=== PATIENT | male | born 1950 | race Caucasian/White ===

== ENCOUNTER 2017-09-22 11:12 | Inpatient (IN) | payer MEDICARE, OTHER ==
[2017-09-22] MEDS ORDERED: ACETAMINOPHEN 325 MG TAB PO ×2 (12:00→23:00)
[2017-09-22] MEDS ORDERED: ONDANSETRON 4 MG INJ IV (12:00)
[2017-09-22 12:29] LABS: ADD MAN DIFF? NO
[2017-09-22 12:32] LABS: WHITE BLOOD COUNT 7.4 10^3/ul (4.8-10.8)
[2017-09-22 12:32] LABS: BASOPHILS % 0.4 % (0.0-2.0); EOSINOPHILS # 0.5 10^3/ul (0.0-0.5); EOSINOPHILS % 6.8 % (0.0-7.0); HEMATOCRIT 27.4 % (42.0-52.0); HEMOGLOBIN 8.6 g/dl (14.0-18.0); LYMPHOCYTES # 0.7 10^3/ul (0.8-2.9); LYMPHOCYTES % 9.4 % (15.0-51.0); MEAN CORPUSCULAR HEMOGLOBIN 29.6 pg (29.0-33.0); MEAN CORPUSCULAR HGB CONC 31.4 g/dl (32.0-37.0); MEAN CORPUSCULAR VOLUME 94.2 fl (82.0-101.0); MONOCYTE # 0.4 10^3/ul (0.3-0.9); MONOCYTES % 5.2 % (0.0-11.0); NEUTROPHIL # 5.7 10^3/ul (1.6-7.5); NEUTROPHILS % 77.9 % (39.0-77.0); PLATELET COUNT 182 10^3/UL (140-415); RED BLOOD COUNT 2.91 10^6/ul (4.70-6.10); RED CELL DISTRIBUTION WIDTH 15.1 % (11.5-14.5)
[2017-09-22 12:51] LABS: ALANINE AMINOTRANSFERASE 29 IU/L (13-69); ALBUMIN 3.8 g/dl (3.3-4.9); ALBUMIN/GLOBULIN RATIO 1.08; ALKALINE PHOSPHATASE 61 IU/L (42-121); ANION GAP 14 (8-16); ASPARTATE AMINO TRANSFERASE 20 IU/L (15-46); BILIRUBIN,INDIRECT 0.1 mg/dl (0-1.1); BILIRUBIN,TOTAL 0.1 mg/dl (0.2-1.3); BLOOD UREA NITROGEN 30 mg/dl (7-20); CALCIUM 8.7 mg/dl (8.4-10.2); CARBON DIOXIDE 26 mmol/L (21-31); CHLORIDE 108 mmol/L (97-110); CREATININE 1.75 mg/dl (0.61-1.24); GLUCOSE 93 mg/dl (70-220); SODIUM 143 mmol/L (135-144); TOTAL PROTEIN 7.3 g/dl (6.1-8.1)
[2017-09-22 12:59] LABS: PROTIME 13.3 Sec (11.9-14.9)
[2017-09-22 13:00] LABS: PARTIAL THROMBOPLASTIN TIME 31.3 Sec (25.0-35.0)
[2017-09-22 13:01] LABS: LACTIC ACID 1.4 mmol/L (0.5-2.0)
[2017-09-22 13:06] LABS: TROPONIN-I < 0.012 ng/ml (0.00-0.12)
[2017-09-22] MEDS: PIPER-TAZO 3.375 GM IV (PMX) 100 ML IVPB (13:16)
[2017-09-22] MEDS: VANCOMYCIN 1 GM (PMX) 250 ML IVPB (14:00)
[2017-09-22] MEDS: LIDOCAINE 1%/EPI 30 ML INJ INJ ×2 (14:57→17:19)
[2017-09-22 16:34] LABS: LACTIC ACID 1.4 mmol/L (0.5-2.0)
[2017-09-22] MEDS: CEFTRIAXONE 1 GM/50 ML (PMX) 50 ML IVPB (16:38)
[2017-09-22] MEDS: PANTOPRAZOLE 40 MG INJ IV (18:45)
[2017-09-22] MEDS ORDERED: PANTOPRAZOLE 40 MG INJ IV (21:00)
[2017-09-22] MEDS ORDERED: BISACODYL 10 MG SUPP PR ×2 (23:00)
[2017-09-22] MEDS ORDERED: GLUCOSE GEL 15 GRAM TUBE PO ×2 (23:30)
[2017-09-22] MEDS ORDERED: RANITIDINE 150 MG TAB PO (23:30)
[2017-09-22] MEDS ORDERED: DEXTROSE 50% 50 ML SYRINGE IV ×2 (23:30)
[2017-09-22] MEDS ORDERED: GLUCAGON 1 MG INJ IM (23:30)
[2017-09-22] MEDS ORDERED: GLUCOSE GEL 15 GRAM TUBE BUCCAL (23:30)
[2017-09-23] MEDS: ACCU-CHEK XX (02:00)
[2017-09-23] MEDS ORDERED: PANTOPRAZOLE (EC) 40 MG TAB PO (06:00)
[2017-09-23] MEDS: LANSOPRAZOLE 30 MG CAP PO ×2 (06:15→17:12)
[2017-09-23] MEDS: INSULIN ASPART [NOVOLOG] 3 ML PEN SC ×4 (08:00→20:52)
[2017-09-23] MEDS: INFLUENZA VIRUS VACCINE 0.5 ML (DISPENSING) IM* (09:00)
[2017-09-23] MEDS ORDERED: CLOPIDOGREL 75 MG TAB PO (09:00)
[2017-09-23] MEDS ORDERED: RANITIDINE 150 MG TAB PO (09:00)
[2017-09-23] MEDS: ESCITALOPRAM 10 MG TAB PO (09:11)
[2017-09-23] MEDS: CHOLECALCIFEROL 1,000 UNIT TAB PO (09:11)
[2017-09-23] MEDS: LOSARTAN 25 MG TAB PO (09:12)
[2017-09-23] MEDS: DOCUSATE SODIUM 100 MG CAP PO ×2 (09:12→20:51)
[2017-09-23] MEDS: LEVETIRACETAM 750 MG TAB PO ×2 (09:12→20:51)
[2017-09-23] MEDS: MULTIVIT/CA CARB/B CMPLX/FA TAB PO (09:13)
[2017-09-23] MEDS: MEMANTINE 10 MG TAB PO (09:13)
[2017-09-23] MEDS: CLOPIDOGREL 75 MG TAB PO (09:13)
[2017-09-23] MEDS: ARTIFICIAL TEARS 15 ML OPH BOTH EYES ×4 (09:14→20:50)
[2017-09-23] MEDS: CEFTRIAXONE 1 GM/50 ML (PMX) 50 ML IVPB (09:14)
[2017-09-23] MEDS: OXYBUTYNIN (XL) 5 MG TAB PO (09:14)
[2017-09-23] MEDS: FENOFIBRATE 145 MG TAB PO (09:31)
[2017-09-23] MEDS: ASPIRIN (EC) 81 MG TAB PO (10:31)
[2017-09-23] MEDS: SODIUM HYPOCHLORITE 0.125% 473 ML BTL IRR (10:51)
[2017-09-23] MEDS: TAMSULOSIN (SR) 0.4 MG CAP PO (20:51)
[2017-09-23] MEDS: ATORVASTATIN 20 MG TAB PO (20:51)
[2017-09-24] MEDS: ACCU-CHEK XX (02:00)
[2017-09-24] MEDS: LANSOPRAZOLE 30 MG CAP PO ×2 (06:06→17:13)
[2017-09-24] MEDS: INSULIN ASPART [NOVOLOG] 3 ML PEN SC ×4 (08:00→20:14)
[2017-09-24] MEDS: CEFTRIAXONE 1 GM/50 ML (PMX) 50 ML IVPB (08:33)
[2017-09-24] MEDS: OXYBUTYNIN (XL) 5 MG TAB PO (08:40)
[2017-09-24] MEDS: MULTIVIT/CA CARB/B CMPLX/FA TAB PO (08:40)
[2017-09-24] MEDS: ARTIFICIAL TEARS 15 ML OPH BOTH EYES ×4 (08:40→20:14)
[2017-09-24] MEDS: CLOPIDOGREL 75 MG TAB PO (08:40)
[2017-09-24] MEDS: ESCITALOPRAM 10 MG TAB PO (08:41)
[2017-09-24] MEDS: ASPIRIN (EC) 81 MG TAB PO (08:41)
[2017-09-24] MEDS: LEVETIRACETAM 750 MG TAB PO ×2 (08:42→20:14)
[2017-09-24] MEDS: DOCUSATE SODIUM 100 MG CAP PO ×2 (08:42→20:14)
[2017-09-24] MEDS: FENOFIBRATE 145 MG TAB PO (08:42)
[2017-09-24] MEDS: CHOLECALCIFEROL 1,000 UNIT TAB PO (08:42)
[2017-09-24] MEDS: MEMANTINE 10 MG TAB PO (08:42)
[2017-09-24] MEDS: LOSARTAN 25 MG TAB PO (08:42)
[2017-09-24] MEDS: SODIUM HYPOCHLORITE 0.125% 473 ML BTL IRR (08:43)
[2017-09-24] MEDS: CLINDAMYCIN 900 MG/D5W (PMX) 50 ML IVPB ×2 (16:02→21:30)
[2017-09-24] MEDS: ATORVASTATIN 20 MG TAB PO (20:14)
[2017-09-24] MEDS: TAMSULOSIN (SR) 0.4 MG CAP PO (20:15)
[2017-09-24] MEDS: DIPHENHYDRAMINE 1%/ZINC 28.3 GM CR TOP (21:30)
[2017-09-25] MEDS: ACCU-CHEK XX (01:41)
[2017-09-25 05:03] LABS: ADD MAN DIFF? NO
[2017-09-25 05:10] LABS: BASOPHILS % 0.5 % (0.0-2.0); EOSINOPHILS # 0.6 10^3/ul (0.0-0.5); EOSINOPHILS % 16.3 % (0.0-7.0); HEMATOCRIT 23.3 % (42.0-52.0); HEMOGLOBIN 7.4 g/dl (14.0-18.0); LYMPHOCYTES # 0.6 10^3/ul (0.8-2.9); LYMPHOCYTES % 16.5 % (15.0-51.0); MEAN CORPUSCULAR HEMOGLOBIN 29.4 pg (29.0-33.0); MEAN CORPUSCULAR HGB CONC 31.8 g/dl (32.0-37.0); MEAN CORPUSCULAR VOLUME 92.5 fl (82.0-101.0); MEAN PLATELET VOLUME 10.2 fl (7.4-10.4); MONOCYTE # 0.3 10^3/ul (0.3-0.9); MONOCYTES % 6.7 % (0.0-11.0); NEUTROPHIL # 2.2 10^3/ul (1.6-7.5); NEUTROPHILS % 59.5 % (39.0-77.0); PLATELET COUNT 190 10^3/UL (140-415); RED BLOOD COUNT 2.52 10^6/ul (4.70-6.10); RED CELL DISTRIBUTION WIDTH 14.7 % (11.5-14.5)
[2017-09-25 05:10] LABS: WHITE BLOOD COUNT 3.8 10^3/ul (4.8-10.8)
[2017-09-25] MEDS: CLINDAMYCIN 900 MG/D5W (PMX) 50 ML IVPB ×3 (05:31→21:03)
[2017-09-25] MEDS: LANSOPRAZOLE 30 MG CAP PO ×2 (05:31→17:48)
[2017-09-25 05:37] LABS: ANION GAP 14 (8-16); BLOOD UREA NITROGEN 46 mg/dl (7-20); CALCIUM 8.9 mg/dl (8.4-10.2); CARBON DIOXIDE 24 mmol/L (21-31); CHLORIDE 109 mmol/L (97-110); CREATININE 1.95 mg/dl (0.61-1.24); GLUCOSE 107 mg/dl (70-220); POTASSIUM 4.7 mmol/L (3.5-5.1); SODIUM 142 mmol/L (135-144)
[2017-09-25] MEDS: SODIUM HYPOCHLORITE 0.125% 473 ML BTL IRR ×2 (06:41→09:34)
[2017-09-25] MEDS: INSULIN ASPART [NOVOLOG] 3 ML PEN SC ×4 (07:53→21:00)
[2017-09-25] MEDS: ARTIFICIAL TEARS 15 ML OPH BOTH EYES ×5 (09:00→20:37)
[2017-09-25] MEDS: DOXYCYCLINE 100 MG TAB PO ×2 (09:33→22:47)
[2017-09-25] MEDS: CLOPIDOGREL 75 MG TAB PO (09:33)
[2017-09-25] MEDS: MULTIVIT/CA CARB/B CMPLX/FA TAB PO (09:33)
[2017-09-25] MEDS: CHOLECALCIFEROL 1,000 UNIT TAB PO (09:33)
[2017-09-25] MEDS: LEVETIRACETAM 750 MG TAB PO ×2 (09:33→20:37)
[2017-09-25] MEDS: DOCUSATE SODIUM 100 MG CAP PO ×2 (09:33→20:38)
[2017-09-25] MEDS: FENOFIBRATE 145 MG TAB PO (09:33)
[2017-09-25] MEDS: OXYBUTYNIN (XL) 5 MG TAB PO (09:33)
[2017-09-25] MEDS: ASPIRIN (EC) 81 MG TAB PO (09:33)
[2017-09-25] MEDS: ESCITALOPRAM 10 MG TAB PO (09:33)
[2017-09-25] MEDS: MEMANTINE 10 MG TAB PO (09:33)
[2017-09-25] MEDS: DIPHENHYDRAMINE 1%/ZINC 28.3 GM CR TOP ×3 (09:34→20:36)
[2017-09-25] MEDS: LOSARTAN 25 MG TAB PO (09:34)
[2017-09-25] MEDS: SOD FERRIC GLUC COMPLX 125 MG in SOD CHLORIDE 0.9% 100 ML IVPB (15:08)
[2017-09-25] MEDS: TAMSULOSIN (SR) 0.4 MG CAP PO (20:37)
[2017-09-25] MEDS: ATORVASTATIN 20 MG TAB PO (20:37)
[2017-09-25] MEDS: DIPHENHYDRAMINE 25 MG CAP PO (20:37)
[2017-09-25 22:07] LABS: IMMEDIATE SPIN CROSSMATCH 1 1
[2017-09-26] MEDS: ACCU-CHEK XX (02:00)
[2017-09-26] MEDS: CLINDAMYCIN 900 MG/D5W (PMX) 50 ML IVPB ×2 (06:18→13:12)
[2017-09-26] MEDS: LANSOPRAZOLE 30 MG CAP PO (06:19)
[2017-09-26] MEDS: INSULIN ASPART [NOVOLOG] 3 ML PEN SC ×2 (08:00→12:07)
[2017-09-26] MEDS: SODIUM HYPOCHLORITE 0.125% 473 ML BTL IRR (09:04)
[2017-09-26] MEDS: ARTIFICIAL TEARS 15 ML OPH BOTH EYES ×2 (09:05→12:07)
[2017-09-26] MEDS: FENOFIBRATE 145 MG TAB PO (09:07)
[2017-09-26] MEDS: ASPIRIN (EC) 81 MG TAB PO (09:07)
[2017-09-26] MEDS: DOXYCYCLINE 100 MG TAB PO (09:07)
[2017-09-26] MEDS: DOCUSATE SODIUM 100 MG CAP PO (09:07)
[2017-09-26] MEDS: ESCITALOPRAM 10 MG TAB PO (09:07)
[2017-09-26] MEDS: CHOLECALCIFEROL 1,000 UNIT TAB PO (09:07)
[2017-09-26] MEDS: CLOPIDOGREL 75 MG TAB PO (09:07)
[2017-09-26] MEDS: LEVETIRACETAM 750 MG TAB PO (09:08)
[2017-09-26] MEDS: MEMANTINE 10 MG TAB PO (09:08)
[2017-09-26] MEDS: MULTIVIT/CA CARB/B CMPLX/FA TAB PO (09:10)
[2017-09-26] MEDS: OXYBUTYNIN (XL) 5 MG TAB PO (09:10)
[2017-09-26] MEDS: DIPHENHYDRAMINE 1%/ZINC 28.3 GM CR TOP ×2 (09:11→12:07)
[2017-09-26 10:23] LABS: ADD MAN DIFF? NO
[2017-09-26 10:26] LABS: WHITE BLOOD COUNT 4.3 10^3/ul (4.8-10.8)
[2017-09-26 10:26] LABS: ABNORMAL IP MESSAGE 1; BASOPHILS % 0.2 % (0.0-2.0); EOSINOPHILS # 0.5 10^3/ul (0.0-0.5); EOSINOPHILS % 12.5 % (0.0-7.0); HEMATOCRIT 26.9 % (42.0-52.0); HEMOGLOBIN 8.9 g/dl (14.0-18.0); LYMPHOCYTES # 0.4 10^3/ul (0.8-2.9); LYMPHOCYTES % 9.9 % (15.0-51.0); MEAN CORPUSCULAR HGB CONC 33.1 g/dl (32.0-37.0); MEAN CORPUSCULAR VOLUME 90.6 fl (82.0-101.0); MEAN PLATELET VOLUME 9.3 fl (7.4-10.4); MONOCYTE # 0.2 10^3/ul (0.3-0.9); NEUTROPHIL # 3.1 10^3/ul (1.6-7.5); NEUTROPHILS % 73.2 % (39.0-77.0); PLATELET COUNT 215 10^3/UL (140-415); POSITIVE DIFF @See below; RED BLOOD COUNT 2.97 10^6/ul (4.70-6.10); RED CELL DISTRIBUTION WIDTH 14.8 % (11.5-14.5)
[2017-09-26] MEDS: DIPHENHYDRAMINE 25 MG CAP PO (11:21)
[2017-09-26] MEDS: SOD FERRIC GLUC COMPLX 125 MG in SOD CHLORIDE 0.9% 100 ML IVPB (14:21)
[2017-09-26] MEDS ORDERED: EPOETIN 4000 UNITS/1 ML INJ (ESRD) SC (17:00)
== END 2017-09-26 15:45 | DRG 602 ==
LOC: E/R 11:12 → PP2 11:49
PROC: 0H98XZX Drainage of Buttock Skin, External Approach, Diagnostic (ICD-10-PCS; principal; 2017-09-22)
PROC: 30233N1 Transfusion of Nonautologous Red Blood Cells into Peripheral Vein, Percutaneous Approach (ICD-10-PCS; 2017-09-25)
DX: L02.31 Cutaneous abscess of buttock (principal); J18.9 Pneumonia, unspecified organism; D70.9 Neutropenia, unspecified; F03.90 Unspecified dementia, unspecified severity, without behavioral disturbance, psychotic disturbance, mood disturbance, and anxiety; G81.94 Hemiplegia, unspecified affecting left nondominant side; E11.22 Type 2 diabetes mellitus with diabetic chronic kidney disease; I12.9 Hypertensive chronic kidney disease with stage 1 through stage 4 chronic kidney disease, or unspecified chronic kidney disease; N18.9 Chronic kidney disease, unspecified; D64.9 Anemia, unspecified; G40.909 Epilepsy, unspecified, not intractable, without status epilepticus; B95.62 Methicillin resistant Staphylococcus aureus infection as the cause of diseases classified elsewhere; I25.10 Atherosclerotic heart disease of native coronary artery without angina pectoris; N40.0 Benign prostatic hyperplasia without lower urinary tract symptoms; K21.9 Gastro-esophageal reflux disease without esophagitis; I25.2 Old myocardial infarction; Z87.891 Personal history of nicotine dependence; Z79.4 Long term (current) use of insulin; Z79.02 Long term (current) use of antithrombotics/antiplatelets; Z79.82 Long term (current) use of aspirin
CPT/HCPCS: 36415; 36430; 71045; 80048; 80053; 82962; 83605; 84484; 85025; 85610; 85730; 86850; 86900; 86901; 86920; 87040; 87070; 87081; 90686; 93005; 96374; 96375; 99285-25